=== PATIENT | male | born 1960 | race Caucasian/White ===

== ENCOUNTER 2017-07-12 05:42 | Day surgery (SDC) | payer MEDICAID ==
[~2017-07-12] VITALS: Ht 175.3 cm; Wt 77.3 kg
[~2017-07-12 05:42] MED LIST: ALBU8.5H8 IH; CITA10SO PO; CYCL10TA7 PO; DOXA1 PO; FLUT16H NASAL; GABA-318 PO; GABA250S5 PO; LEVE500T19 PO; LISI10TA PO; MOME13HF IH; MONT10TA24 PO; PANT40TA25 PO; TRAM50TA4 PO
[2017-07-12] MEDS ORDERED: SODIUM CHLORIDE 0.9% 1,000 ML IV ONE ×2 (06:17→07:00)
[2017-07-12] MEDS ORDERED: MIDAZOLAM HCL 2 MG/2 ML VIAL ONE (07:47)
[2017-07-12] MEDS ORDERED: FentaNYL CITRATE-PF 100 MCG/2 ML VIAL ONE (07:47)
[2017-07-12] MEDS ORDERED: MethylPREDNISolone SOD SUCC 125 MG/2 ML VIAL IVP ONE (08:45)
[2017-07-12] MEDS ORDERED: MethylPREDNISolone SOD SUCC 125 MG/2 ML VIAL ONE (08:48)
[2017-07-12] MEDS ORDERED: OXYGEN THERAPY IH SCH (20:00)
== END 2017-07-12 10:00 | disposition home or self-care (01) ==
LOC: SURGERY 05:42
PROVIDERS: ATTEND Internal Medicine Critical Care Medicine
DX: J38.4 Edema of larynx (principal); B37.0 Candidal stomatitis; J84.111 Idiopathic interstitial pneumonia, not otherwise specified; I10 Essential (primary) hypertension; I71.4 Abdominal aortic aneurysm, without rupture; F15.21 Other stimulant dependence, in remission; Z87.891 Personal history of nicotine dependence; Z79.899 Other long term (current) drug therapy
CPT/HCPCS: 31623; 31624; 71010; 87015 ×2; 87070; 87101; 87147; 87205; 87220; 88108; 88305; 88312; J2250; J2930; J3010; J7030